=== PATIENT | male | born 1990 | race Two or more races ===

== ENCOUNTER 2025-09-28 02:27 | Emergency (ER) | payer MEDICAID, OTHER ==
[~2025-09-28] VITALS: Ht 175.3 cm; Wt 102.7 kg
--- NOTE | 2025-09-28 02:43 | ECG ---
[facility] Test Date: 2025-09-28 Test Time: 02:42:22 Pat Name: ZAHIDA ARREGUIN Department: Room: Gender: M Topographical Field Assistant: JAYJAY : 1990 Requested By: AUREA GARZA Order Number: [id number] Reading MD: Darion Schwartz Measurements Intervals [place] Rate: 75 P: 53 TN: 161 QRS: 213 QRSD: 107 T: 25 QT: 388 QTc: 434 Interpretive Statements Sinus rhythm Probable right ventricular hypertrophy Minimal ST elevation, lateral leads Electronically Signed On 10-01-2025 10:29:29 PST by Darion Schwartz Please click the below link to view image of tracing.
[2025-09-28 02:58] LABS: Chloride 105 mmol/L (98-107); Potassium 3.9 mmol/L (3.5-5.1); Sodium 140 mmol/L (136-145)
[2025-09-28 02:59] LABS: Anion Gap 6 (5-15); Calcium 9.3 mg/dL (8.7-10.4); Carbon Dioxide 29 mmol/L (20-31)
[2025-09-28 03:04] LABS: BUN/Creatinine Ratio 10.4 (10.0-20.0); Blood Urea Nitrogen 10 mg/dL (9-23)
[2025-09-28 03:09] LABS: Glucose 110 mg/dL (74-106)
[2025-09-28 03:10] LABS: Hematocrit 44.6 % (41.0-53.0); Hemoglobin 15.6 g/dL (13.5-17.5); Mean Corpuscular Hemoglobin 31.4 pg (28.0-32.0); Mean Corpuscular Volume 90.0 fL (80.0-100.0); Nucleated Red Blood Cells % 0.2 %
--- NOTE | 2025-09-28 03:14 | DVH ---
CHEST RADIOGRAPH INDICATION: CHEST PAIN TECHNIQUE: Single frontal view of the chest was obtained COMPARISON: None FINDINGS: Lines and Tubes: None Lungs: Clear Pleura: No effusion. No pneumothorax. Cardiomediastinal contours: Unremarkable Bones: Unremarkable IMPRESSION: 1. No acute disease.
--- NOTE | 2025-09-28 03:30 | ED.PDOC ---
HPI Comments 34 year-old male presents to the ED with a chief complaint of L sided chest pressure with associated lightheadedness as of X30 minutes ago. Patient reports a PMHx of pre-HTN and pre-Hyperlipidemia. Patient reports taking X2 Aspirin today to alleviate symptoms. Patient states chest pressure has decreased upon evaluation. Patient has a social history of smoking, but denies any PMHx of SHx. Patient has no further complaints at this time and otherwise denies symptoms of palpitations, SOB, weakness, dizziness, or headache. REVIEW OF SYSTEMS: General: No fever, no chills, or fatigue HEENT: No sore throat, no earache, no congestion, no neck pain. Cardiac: + chest pain. No palpitations. Lungs: No shortness of breath, no cough. GI: No nausea, no vomiting, no diarrhea, no constipation, no abdominal pain : No dysuria, frequency, or urgency. No hematuria. Musculoskeletal: No joint pain , no joint swelling, no extremity edema. Skin: No rash, no itching. Neuro: + lightheadedness. No headache, no dizziness, no weakness (And as sated in HPI) PHYSICAL EXAM: General: Awake, alert and oriented. No acute distress. Skin: Skin in warm, dry and intact. Appropriate color for ethnicity. HEENT: The head is normocephalic and atraumatic. Conjunctivae are clear without exudates or hemorrhage. Sclera is non-icteric. Eyelids are normal in appearance without swelling or lesions. Oral mucosa is pink and moist Neck: The neck is supple with normal range of motion. No JVD. Cardiac: Heart rate and rhythm are normal. No murmurs, gallops, or rubs are auscultated. Respiratory: No signs of respiratory distress. Lung sounds are clear in all lobes bilaterally without rales, rhonchi, or wheezes. Abdominal: Abdomen is soft, non-tender without distention, guarding or rigidity. Bowel sounds are present and normoactive in all four quadrants. Extremities: Lower extremities without edema. Neurological: The patient is awake, alert and oriented to person, place, and time with normal speech. Speech is clear. There is no facial asymmetry. Psychiatric: Appropriate mood and affect. Good judgement and insight. Chief Complaint: Chest Pain Time Seen by MD: 03:21 Reviewed Notes: Medications, Allergies Allergies: Coded Allergies: NO KNOWN ALLERGIES (Unverified , 09/28/25) Information Source: Patient Mode of Arrival: Ambulatory Severity: Moderate Duration: Since onset Location: Chest (L) Radiation: No Radiation Associated Signs and Symptoms: Other (lightheadedness ) Past Medical History PAST MEDICAL HISTORY: High Lipids, HTN Surgical History: Denies all surgeries Family History Family History: Reviewed,noncontributory to illness, No family hx of Cancer, No family hx of DM, No family hx of Heart kevin, No family hx of HTN, No family hx ofKidney kevin, No family hx of Liver kevin, No family hx of Lung kevin, No family hx of Stroke Social History Smoker: Cigarettes Alcohol: Denies ETOH Use Drugs: Denies Drug Use Lives In: Home EKG EKG : Pulse Rate (adult): 75 Comments Sinus rhythm Probable right ventricular hypertrophy Minimal ST elevation, lateral leads Was a procedure done? Was a procedure done?: No CP Differential Dx Differential Diagnosis: A-fib, A-Flutter, Angina, Anxiety / Panic Attack Differential Diagnosis: CHF, HTN Essential Differential Diagnosis: Angina, Aortic dissection, Chest Wall Pain, Cholelithiasis, Gastritis, Pneumonia X-Ray, Labs, Meds, VS Vital Signs Date Time Temp Pulse Resp B/P (MAP) Pulse Ox O2 Delivery O2 Flow Rate FiO2 09/28/25 03:40 61 09/28/25 03:30 75 09/28/25 02:42 75 09/28/25 02:31 97.8 73 18 148/106 97 97.8 Lab Test 09/28/25 03:26 09/28/25 02:40 Range/Units Troponin I High Sensitivity 4 3 L </=54 ng/L White Blood Count 5.8 4.4-10.8 10^3/uL Red Blood Count 4.96 4.5-5.90 10^6/uL Hemoglobin 15.6 13.5-17.5 g/dL Hematocrit 44.6 41.0-53.0 % Mean Corpuscular Volume 90.0 80.0-100.0 fL Mean Corpuscular Hemoglobin 31.4 28.0-32.0 pg Mean Corpuscular Hemoglobin Concent 34.9 32.0-36.0 g/dL Red Cell Distribution Width 14.6 H 11.8-14.3 % Platelet Count 199 140-450 10^3/uL Mean Platelet Volume 10.0 6.9-10.8 fL Neutrophils (%) (Auto) 33.2 L 37.0-80.0 % Lymphocytes (%) (Auto) 52.3 H 10.0-50.0 % Monocytes (%) (Auto) 9.7 0.0-12.0 % Eosinophils (%) (Auto) 4.2 0.0-7.0 % Basophils (%) (Auto) 0.6 0.0-2.0 % Neutrophils # (Auto) 1.9 1.6-8.6 10 ^3/uL Lymphocytes # (Auto) 3.0 0.4-5.4 10 ^3/uL Monocytes # (Auto) 0.6 0-1.3 10 ^3/uL Eosinophils # (Auto) 0.2 0-0.8 10 ^3/uL Basophils # (Auto) 0 0-0.2 10 ^3/uL Nucleated Red Blood Cells 0.2 % Sodium Level 140 136-145 mmol/L Potassium Level 3.9 3.5-5.1 mmol/L Chloride Level 105 98-107 mmol/L Carbon Dioxide Level 29 20-31 mmol/L Anion Gap 6 5-15 Blood Urea Nitrogen 10 9-23 mg/dL Creatinine 0.96 0.700-1.30 mg/dL Glomerular Filtration Rate Calc 106 >90 mL/min BUN/Creatinine Ratio 10.4 10.0-20.0 Serum Glucose 110 H 74-106 mg/dL Calcium Level 9.3 8.7-10.4 mg/dL [place] [id number] Ph: [phone] DIAGNOSTIC IMAGING Diagnostic Imaging Report : [id number] Signed PATIENT: ZAHIDA CALDERON EACCT: [id number] UNIT: [id number] : 1990 LOC: ER ROOM / BED: / AGE / SEX: 34 / M ADM STATUS: REG ER SERVICE 0250 ORDERING PHYSICIAN: AUREA GARZA MD PROCEDURE(s): CXR1 - CHEST XRAY 1 VIEW REASON: CHEST PAIN ORDER NUMBER(s): [id number], ACCESSION NUMBER(s): [id number] CHEST RADIOGRAPH INDICATION: CHEST PAIN TECHNIQUE: Single frontal view of the chest was obtained COMPARISON: None FINDINGS: Lines and Tubes: None Lungs: Clear Pleura: No effusion. No pneumothorax. Cardiomediastinal contours: Unremarkable Bones: Unremarkable IMPRESSION: 1. No acute disease. ATED BY: JESUS ALBERTO HURTADO MD DICTATED DATE/TIME: 09/28/25311 SIGNED BY: JESUS ALBERTO HURTADO MD SIGNED DATE/TIME: 09/28/25311 CC: Time of 1ST Reevaluation: 04:08 Reevaluation 1ST: Unchanged Patient Education/Counseling: Diagnosis, Treatment, Need For Follow Up Family Education/Counseling: No Family Present SEPSIS Sepsis Screen Date sepsis recognized/suspect: Sep 28, 2025 Time Sepsis recognized/suspect: 233 Recent Procedure: No On Antibiotic Therapy: No Respiratory Rate >20: No Heart Rate >90: No Temp<36 C (96.8 F) or >38.3 C: No SBP <90 or MAP <65 mmHG: No New Acute Mental Status Change: No Is the patient on CPAP, BIPAP,: No Physician Orders Chest Xray 1 View (09/28/25 02:50) Troponin-I Hs (09/28/25 05:30) Electrocardigram (09/28/25 03:30) Electrocardigram (09/28/25 05:30) Vital Signs Date Time Temp Pulse Resp B/P (MAP) Pulse Ox O2 Delivery O2 Flow Rate FiO2 09/28/25 03:40 61 09/28/25 03:30 75 09/28/25 02:42 75 09/28/25 02:31 97.8 73 18 148/106 97 97.8 Laboratory Tests Test 09/28/25 02:40 White Blood Count 5.8 10^3/uL (4.4-10.8) Departure 1 Departure Time of Disposition: 05:49 Impression: Primary Impression: Chest pain Disposition: 01 HOME / SELF CARE / HOMELESS Condition: Stable Additional Instructions: ED DISCHARGE INSTRUCTIONS INSTRUCTIONS: PLEASE READ ALL INSTRUCTIONS PROVIDED IN THIS PACKET CAREFULLY. ALTHOUGH YOU HAVE BEEN DISCHARGED FROM THE EMERGENCY DEPARTMENT, THIS DOES NOT M ANTHONY THAT YOU HAVE A "CLEAN BILL OF HEALTH". NO DEFINITIVE DIAGNOSIS FOR YOUR SYMPTOMS HAS BEEN MADE TODAY. IT IS POSSIBLE THAT YOU ARE IN THE PROCESS OF DEVELOPING A SERIOUS ILLNESS. THIS IS WHY YOU MUST RETURN TO THE ED WITHOUT FAIL IF ANY NEW OR WORSENING SYMPTOMS (ESPECIALLY IF YOUR SYMPTOMS INCLUDE CHEST PAIN, TROUBLE BREATHING, ABDOMINAL PAIN, FEVER, HEADACHE, CONFUSION, TROUBLE SEEING, OR TROUBLE WALKING) IT IS ALSO VERY IMPORTANT THAT YOU SEE A PRIMARY CARE PROVIDER (PCP) WITHIN THE NEXT 3-5 DAYS TO FOLLOW UP. IF YOU ARE UNABLE TO GET AN APPOINTMENT, RETURN TO THE ED FOR RE-EVALUATION. CHEST PAIN EDUCATION THERE ARE MANY THINGS THAT CAN CAUSE CHEST PAIN. SOME ARE NOT SERIOUS AND WILL GET BETTER ON THEIR OWN IN A FEW DAYS. BUT SOME KINDS OF CHEST PAIN NEED MORE TESTING AND TREATMENT. YOUR DOCTOR MAY HAVE RECOMMENDED A FOLLOW-UP VISIT IN THE NEXT FEW DAYS. IF YOU ARE NOT GETTING BETTER, YOU MAY NEED MORE TESTS OR TREATMENT. EVEN THOUGH YOUR DOCTOR HAS RELEASED YOU, YOU STILL NEED TO WATCH FOR ANY PROBLEMS. THE DOCTOR CAREFULLY CHECKED YOU, BUT SOMETIMES PROBLEMS CAN DEVELOP LATER. IF YOU HAVE NEW SYMPTOMS OR IF YOUR SYMPTOMS DO NOT GET BETTER, GET MEDICAL CARE RIGHT AWAY. IF YOU HAVE WORSE OR DIFFERENT CHEST PAIN OR PRESSURE THAT LASTS MORE THAN 5 MINUTES OR YOU PASSED OUT (LOST CONSCIOUSNESS), CALL 911 OR SEEK OTHER EMERGENCY HELP RIGHT AWAY. A MEDICAL VISIT IS ONLY ONE STEP IN YOUR TREATMENT. EVEN IF YOU FEEL BETTER, YOU STILL NEED TO DO WHAT YOUR DOCTOR RECOMMENDS, SUCH GOING TO ALL SUGGESTED FOLLOW-UP APPOINTMENTS AND TAKING MEDICINES EXACTLY DIRECTED. THIS WILL HELP YOU RECOVER AND HELP PREVENT FUTURE PROBLEMS. HOW CAN YOU CARE FOR YOURSELF AT HOME? REST UNTIL YOU FEEL BETTER. TAKE YOUR MEDICINE EXACTLY PRESCRIBED. CALL YOUR DOCTOR IF YOU THINK YOU ARE HAVING A PROBLEM WITH YOUR MEDICINE. DO NOT DRIVE AFTER TAKING A PRESCRIPTION PAIN MEDICINE. WHEN SHOULD YOU CALL FOR HELP? CALL 911 IF: YOU PASSED OUT (LOST CONSCIOUSNESS). YOU HAVE SEVERE DIFFICULTY BREATHING. YOU HAVE SYMPTOMS OF A HEART ATTACK. THESE MAY INCLUDE: CHEST PAIN OR PRESSURE, OR A STRANGE FEELING IN YOUR CHEST. SWEATING. SHORTNESS OF BREATH. NAUSEA OR VOMITING. PAIN, PRESSURE, OR A STRANGE FEELING IN YOUR BACK, NECK, JAW, OR UPPER BELLY OR IN ONE OR BOTH SHOULDERS OR ARMS. LIGHTHEADEDNESS OR SUDDEN WEAKNESS. A FAST OR IRREGULAR HEARTBEAT. AFTER YOU CALL 911, THE CD REACTOR OPERATOR MAY TELL YOU TO CHEW 1 ADULT-STRENGTH OR 2 TO 4 LOW-DOSE ASPIRIN. WAIT FOR AN AMBULANCE. DO NOT TRY TO DRIVE YOURSELF. CALL YOUR DOCTOR NOW OR SEEK IMMEDIATE MEDICAL CARE IF: YOU HAVE ANY TROUBLE BREATHING. YOU HAVE NEW OR DIFFERENT CHEST PAIN. YOU ARE DIZZY OR LIGHTHEADED, OR YOU FEEL LIKE YOU MAY FAINT. WATCH CLOSELY FOR CHANGES IN YOUR HEALTH, AND BE SURE TO CONTACT YOUR DOCTOR IF YOU DO NOT GET BETTER EXPECTED. CURRENT OF: MAY 06, 2024 AUTHOR: [place] STAFF? Comments 34-year-old male with chest pressure. EKG negative for signs of ischemia. High sensitivity troponin negative. CXR shows no acute process. Presentation not suggestive of acute coronary syndrome, pulmonary embolism or aortic dissection. Patient improved at time of discharge. Patient has not been hypoxic, in respiratory distress or dyspneic during the ED observation. Patient able to ambulate without difficulty. Patient felt stable for discharge to follow up with PCP promptly. Patient advised to return to the ED with any new, worsening or concerning symptoms or inability to follow up with PCP. Critical Care Note Critical Care Time?: No Stability Stability form required: No Heart Score Heart Score: Heart Score Response (Comments) Value History Moderate Suspicious 1 EKG Normal 0 Age <45 0 Risk Factors No known risk factors 0 Troponin N/A 0 Total 1 I personally scribed for AUREA GARZA MD ([employer]) on 09/28/25 at 03:30. Electronically submitted by Fátima Moreland ([employer]). I personally scribed for AUREA GARZA MD ([email or web address]) on 09/28/25 at 04:42. Electronically submitted by Fátima Moreland ([employer]). AUREA GARZA MD Sep 28, 2025 03:30
[2025-09-28 06:03] VITALS: BP 141/90; PULSE 60; RESP 14; TEMP 98.3; O2SAT 95
--- NOTE | 2025-09-28 13:54 | ECG ---
[facility] Test Date: 2025-09-28 Test Time: 03:40:41 Pat Name: ZAHIDA ARREGUIN Department: ED Room: Gender: M Penciller: JAYJAY : 1990 Requested By: AUREA GARZA Order Number: [id number] Reading MD: Darion Schwartz Measurements Intervals [place] Rate: 61 P: 55 GA: 146 QRS: -10 QRSD: 115 T: 29 QT: 378 QTc: 381 Interpretive Statements Sinus rhythm Incomplete RBBB and LAFB Minimal ST elevation, inferior leads Electronically Signed On 10-01-2025 10:29:30 PST by Darion Schwartz Please click the below link to view image of tracing.
--- NOTE | 2025-09-28 13:54 | ECG ---
[facility] Test Date: 2025-09-28 Test Time: 05:59:52 Pat Name: ZAHIDA ARREGUIN Department: ED Room: Gender: M Market Director: JAYJAY : 1990 Requested By: AUREA GARZA Order Number: [id number] Reading MD: Darion Schwartz Measurements Intervals [place] Rate: 60 P: 54 TN: 142 QRS: -77 QRSD: 109 T: 20 QT: 382 QTc: 382 Interpretive Statements Sinus rhythm Left axis deviation ST elevation, consider lateral injury Baseline wander in lead(s) V6 Electronically Signed On 10-01-2025 10:29:39 PST by Darion Schwartz Please click the below link to view image of tracing.
== END 2025-09-28 06:08 | disposition home or self-care (01) ==
LOC: ER 02:27
DX: R07.89 Other chest pain (principal); F17.210 Nicotine dependence, cigarettes, uncomplicated; E78.5 Hyperlipidemia, unspecified; I10 Essential (primary) hypertension
CPT/HCPCS: 36415; 71045; 80048; 84484; 85025; 93005